=== PATIENT | female | born 1985 | race Caucasian/White ===

== ENCOUNTER 2024-03-03 05:35 | Day surgery (SDC) | payer BC ==
[~2024-03-03] VITALS: Ht 175.3 cm; Wt 123.7 kg
[~2024-03-03 05:35] MED LIST: Ondansetron 4 MG/2 ML VIAL IV PRN
--- NOTE | 2024-03-03 06:53 | NUR ---
PATIENT ADMITTED TO [facility] AND ORIENTED TO ROOM. CONSENT SIGNED FOR EGD. IVF INFUSING. CALL LIGHT IN REACH AND AWAITS EGD. FATHER WILL RETURN TO DRIVE PATIENT HOME.
[2024-03-03] MEDS ORDERED: TOPROL XL 50MG50 MG PO (06:58)
[2024-03-03] MEDS ORDERED: CYANOCOBAL1000 MCG/1 IM (06:58)
[2024-03-03] MEDS ORDERED: VITAMIND3 5000 PO (06:59)
[2024-03-03] MEDS ORDERED: MULTI VITAMINS1 TAB PO (06:59)
[2024-03-03] MEDS ORDERED: LR 1,000 ML IV SCH (07:00)
[2024-03-03 07:02] VITALS: BP 145/86; PULSE 80; TEMP 97.6
[2024-03-03] MEDS ORDERED: Lidocaine PF 2% (20 MG/ML) 5 ML VIAL ONE (07:33)
[2024-03-03 07:50] VITALS: BP 137/80; PULSE 72; TEMP 97
[2024-03-03 08:05] VITALS: BP 137/75; PULSE 68
[2024-03-03 08:20] VITALS: BP 117/88; PULSE 68
--- NOTE | 2024-03-03 08:25 | NUR ---
0750 RETURNS TO ROOM 1 PER CART. AWAKE, ALERT. RESP UNLABORED. AMBULATES TO RECLINER WITH STANDBY ASSIST. DENIES NAUSEA, ABD/CHEST PAIN OR DYSPHAGIA. VITAL SIGNS OBTAINED. CALL LIGHT AT SIDE 0800 TOLERATES PO WATER AND APPLESAUCE WITHOUT NAUSEA, SWALLOWS WITHOUT DIFFICULTY. DISCHARGE INSTRUCTIONS REVIEWED. PATIENT VERBALIZES UNDERSTANDING. COPY PROVIDED IN DISCHARGE FOLDER [id number] DR. ROMERO HERE TO VISIT WITH PATIENT 0820 DRESSES SELF
== END 2024-03-03 08:25 | disposition home or self-care (01) ==
LOC: SDCO 05:35
DX: R14.0 Abdominal distension (gaseous) (principal); R10.9 Unspecified abdominal pain; K90.49 Malabsorption due to intolerance, not elsewhere classified; E55.9 Vitamin D deficiency, unspecified; Z83.79 Family history of other diseases of the digestive system
CPT/HCPCS: J2704; J7120